=== PATIENT | male | born 1950 | race Caucasian/White ===

== ENCOUNTER 2019-03-08 06:56 | Day surgery (SDC) | payer MEDICARE, BC ==
[~2019-03-08] VITALS: Ht 195.6 cm; Wt 94.6 kg
[2019-03-08] MEDS ORDERED: LANS15TA6 PO (07:26)
[2019-03-08] MEDS ORDERED: LACTATED RINGERS 1,000 ML IV SCH (07:40)
[2019-03-08 07:52] VITALS: BP 107/70
[2019-03-08] MEDS ORDERED: PROPOFOL 10 MG/ML, 20ML ONE (08:55)
[2019-03-08] MEDS ORDERED: LIDOCAINE-MPF 2% ,5ML ONE (08:55)
[2019-03-08] MEDS ORDERED: HYDROmorphone 2 MG/ML, 1ML IVPush PRN (09:30)
[2019-03-08] MEDS ORDERED: ACETAMINOPHEN 325 MG TABLET PO PRN (09:30)
[2019-03-08] MEDS ORDERED: MEPERIDINE/PF 25MG/0.5ML IVPush PRN (09:30)
[2019-03-08] MEDS ORDERED: DIAZEPAM 5 MG/ML, 2ML IVPush PRN (09:30)
[2019-03-08] MEDS ORDERED: ALBUTEROL SULFATE 2.5 MG/3 ML NPPB PRN (09:30)
[2019-03-08] MEDS ORDERED: OXYcodone 5 MG/5 ML ORAL.SOL UDC PO PRN (09:30)
[2019-03-08] MEDS ORDERED: hydrALAzine 20 MG/ML, 1ML IV PRN (09:30)
[2019-03-08] MEDS ORDERED: FENTANYL PF 100 MCG/2ML IV PRN (09:30)
[2019-03-08] MEDS ORDERED: KETOROLAC 30 MG/1 ML IV PRN (09:30)
[2019-03-08] MEDS ORDERED: PROMETHAZINE 25 MG/ML, 1ML IV PRN (09:30)
[2019-03-08] MEDS ORDERED: LABETALOL 5MG/ML, 20ML IV PRN (09:30)
== END 2019-03-08 10:05 | disposition home or self-care (01) ==
LOC: OUT 06:56
PROVIDERS: ATTEND Internal Medicine Gastroenterology
DX: K22.711 Barrett's esophagus with high grade dysplasia (principal); K20.9 Esophagitis, unspecified; K44.9 Diaphragmatic hernia without obstruction or gangrene; Z79.899 Other long term (current) drug therapy
CPT/HCPCS: 43239; 43270; 88305; 93005; J2704; J7120